=== PATIENT | female | born 1970 | race Caucasian/White ===

== ENCOUNTER 2020-02-21 22:03 | Emergency (ER) | payer BC ==
[~2020-02-21] VITALS: Ht 160 cm; Wt 68.0 kg
[2020-02-21 22:05] VITALS: BP 135/75
[2020-02-21] MEDS ORDERED: LIDOCAINE 1% INJ 50 ML MDV IJ ONE ×2 (22:20→22:30)
[2020-02-21] MEDS ORDERED: TRAMADOL HCL 50 MG TABLET ONE (22:29)
[2020-02-21] MEDS ORDERED: TRAMADOL HCL 50 MG TABLET PO ONE (22:30)
--- NOTE | 2020-02-21 23:55 | NUR ---
PT RECEIVED GOOD SKIN / WOUND CARE ON L TOE AVULSION. AREA WAS CLEANED AND DRIED, TRIPLE ATB APPLIED , COVERED W/ DD AND SECURED W/ KERLIX. PT IS MEDICALLY STABLE FOR D/C. Patient discharged to home in stable condition. Rx and Written and verbal after care instructions given. Patient verbalizes understanding of instruction. Addendum: 02/21/20 at 2359 by JI correction: right toe
== END 2020-02-21 23:55 | disposition home or self-care (01) ==
LOC: ER 22:03
DX: S91.201A Unspecified open wound of right great toe with damage to nail, initial encounter (principal); Z88.8 Allergy status to other drugs, medicaments and biological substances; W22.8XXA Striking against or struck by other objects, initial encounter; Y93.01 Activity, walking, marching and hiking; Y92.89 Other specified places as the place of occurrence of the external cause; Y99.8 Other external cause status
CPT/HCPCS: 11730; 73660; 99284; A6403; J3490